=== PATIENT | female | born 1975 | race Caucasian/White ===

== ENCOUNTER → 2023-10-07 14:30 | Outpatient (REF) | payer OTHER, SELFPAY | LOC: RAD 14:30 | PROVIDERS: ATTENDING PHYSICIAN Family Medicine | DX: K29.50 Unspecified chronic gastritis without bleeding (principal) | CPT/HCPCS: 74177; Q9967 ==

== ENCOUNTER → 2024-02-08 18:14 | Outpatient (REF) | payer OTHER, SELFPAY | LOC: RAD 18:14 | PROVIDERS: ATTENDING PHYSICIAN Specialist; FAMILY PHYSICIAN Family Medicine | DX: M54.16 Radiculopathy, lumbar region (principal); M16.11 Unilateral primary osteoarthritis, right hip; M51.34 Other intervertebral disc degeneration, thoracic region | CPT/HCPCS: 72072; 72100; 73502 ==

== ENCOUNTER → 2024-02-29 14:48 | Outpatient (REF) | payer OTHER, SELFPAY | LOC: PAVMRI 14:48 | PROVIDERS: ATTENDING PHYSICIAN Specialist; FAMILY PHYSICIAN Internal Medicine; REFERRING PHYSICIAN Family Medicine | DX: Z96.82 Presence of neurostimulator (principal) | CPT/HCPCS: 72148 ==

== ENCOUNTER → 2024-07-23 08:53 | Outpatient (REF) | payer OTHER, SELFPAY | LOC: WDC 08:53 | PROVIDERS: ATTENDING PHYSICIAN Family Medicine | DX: Z12.31 Encounter for screening mammogram for malignant neoplasm of breast (principal) | CPT/HCPCS: 77063; 77067 ==